=== PATIENT | female | born 1965 | race American Indian/Alaskan Native ===

== ENCOUNTER 2016-12-25 11:34 | Outpatient (CLI) | payer MEDICARE ==
--- NOTE | 2016-12-27 10:27 | Cat Scan Report ---
CT LOWER EXTREMITY LEFT WITHOUT CONTRAST HISTORY: Left foot pain, primary osteoarthritis. TECHNIQUE: Helical noncontrast CT images with sagittal and coronal reformatted images. FINDINGS: No relevant comparisons at this facility. Bone mineralization appears normal. There is no evidence for fracture, bone lesion, degenerative changes, bony erosions or periostitis. The joint spaces are within normal limits. The musculotendinous structures including the Achilles tendon are grossly normal on CT. No plantar spur. The plantar fascia is within normal limits. IMPRESSION: Unremarkable CT of the left foot. No abnormality is detected. No osteoarthritic or erosive joint pathology is appreciated.
== END 2016-12-25 11:35 | disposition home or self-care (01) ==
LOC: CT 11:34
PROVIDERS: ATTEND Orthopaedic Surgery
DX: M19.072 Primary osteoarthritis, left ankle and foot (principal); S92.322A Displaced fracture of second metatarsal bone, left foot, initial encounter for closed fracture; X58.XXXA Exposure to other specified factors, initial encounter; Y93.89 Activity, other specified; Y92.89 Other specified places as the place of occurrence of the external cause; Y99.8 Other external cause status

== ENCOUNTER 2017-04-19 11:12 | Outpatient (CLI) | payer MEDICARE ==
--- NOTE | 2017-04-19 11:56 | XRay Report ---
LEFT HIP RADIOGRAPHS INDICATION: Left hip pain. COMPARISON: None similar. FINDINGS: An AP pelvic radiograph with frog-leg projection of the left hip demonstrate intact SI and hip articulations. Normal femoral head contours, though degenerative spurring at the junction with their necks noted, more so laterally. Nonobstructive bowel gas pattern. Mild lower lumbar degenerative changes. Battery pack noted in the right lower quadrant. Umbilical piercing ornament also incidentally seen. CONCLUSION: No acute radiographic abnormality with few degenerative and iatrogenic changes noted, as described. Thank you for the opportunity to participate in this patient's care.
== END 2017-04-19 11:13 | disposition home or self-care (01) ==
LOC: XRAY 11:12 → EDBD 11:12 → XRAY 11:13
PROVIDERS: ATTEND Physical Medicine & Rehabilitation Pain Medicine
DX: M16.12 Unilateral primary osteoarthritis, left hip (principal); M47.896 Other spondylosis, lumbar region

== ENCOUNTER 2018-05-11 15:01 | Outpatient (CLI) | payer MEDICARE ==
--- NOTE | 2018-05-11 18:31 | XRay Report ---
FINAL REPORT EXAM: XR HIPS BILAT 2V W/PELVIS HISTORY: PAIN IN HIPS TECHNIQUE: Bilateral hips and AP pelvis PRIORS: None. FINDINGS: No fracture identified. No dislocation seen. Femoral heads maintain a normal contour. Joint spaces are within normal limits. Bony pelvis is unremarkable. Pubic symphysis and SI joints appear within normal limits. IMPRESSION: Negative bilateral hip series
--- NOTE | 2018-05-11 18:40 | XRay Report ---
FINAL REPORT EXAM: XR SPINE LUMBOSACRAL 4+V HISTORY: RADICULOPATHY TECHNIQUE: Lumbar spine five views PRIORS: None. FINDINGS: Vertebral bodies demonstrate normal height and alignment. The disc spaces are within normal limits. There is no evidence of spondylolisthesis. Transverse and spinous processes are intact SI joints are unremarkable. There is marked facet joint hypertrophic arthropathy most prominent from L3-L4 through L5-S1 IMPRESSION: Facet joint arthropathy lower lumbar spine
== END 2018-05-11 15:02 | disposition home or self-care (01) ==
LOC: XRAY 15:01
PROVIDERS: ATTEND Physical Medicine & Rehabilitation Pain Medicine
DX: M46.86 Other specified inflammatory spondylopathies, lumbar region (principal); M25.552 Pain in left hip; M25.551 Pain in right hip
CPT/HCPCS: 72110; 73521